=== PATIENT | female | born 1990 ===

== ENCOUNTER → 2017-02-17 16:36 | Observation (INO) ==
[2017-02-17 15:40] LABS: Bilirubin,Urine Negative (Negative); Blood,Urine Negative (Negative); Color,Urine Yellow (Yellow); Glucose,Urine (UA) Normal (Normal); Ketones,Urine 15 mg/dL (Negative); Leukocyte Esterase,Urine Small (Negative); Nitrite,Urine Negative (Negative); Protein,Urine Negative (Neg-Trace); Specific Gravity,Urine 1.022 (1.010-1.025); Urobilinogen,Urine Normal (Normal)
[2017-02-17 15:41] LABS: Bacteria,Urine Few per hpf (None-Few); Hyaline Casts,Urine Few per lpf (None-Few); RBC,Urine 0-3 per hpf (0-3); Squamous Epithelial Cell,Urine Many per lpf (None-Few); WBC,Urine 15-30 per hpf (0-3)
[2017-02-17 15:51] LABS: Clarity,Urine Clear (Clear)
[2017-02-17 16:11] LABS: Amphetamine Screen,Urine Negative ng/mL (Cutoff=1000); Barbiturate Screen,Urine Negative ng/mL (Cutoff=200); Benzodiazepines Screen,Urine Negative ng/mL (Cutoff=200); Cannabinoid Screen,Urine Negative ng/mL (Cutoff = 50); Cocaine Screen,Urine Negative ng/mL (Cutoff= 300); Opiate Screen,Urine Negative ng/mL (Cutoff=300); Phencyclidine Screen,Urine Negative ng/mL (Cutoff=25)
[~2017-02-17 16:36] MED LIST: GI Cocktail 40 ML EACH PO ONE
--- NOTE | 2017-02-21 17:52 | OB/GYN Progress Note ---
Date of Encounter: 02/17/17 Time of Encounter: 16:15 - Assessment and Plan (1) Abdominal pain Status: Acute No contractions on toco. No c/o contractions, LOF, VB. GI cocktail given. Pt discharged home with precautions per staff development coordinator rn. Qualifiers: Abdominal location: epigastric Qualified Code(s): R10.13 - Epigastric pain (2) 23 weeks gestation of Status: Acute Subjective - Subjective Interval history: 26 year-old presenting at 23 weeks gestation with c/o upper middle abdominal pain that is constant. She denies contractions, LOF, VB, intractable vomiting. Antepartum ROS: movement normal, no loss of fluid, no vaginal bleeding, no contractions Objective - Exam FHR: category 1 FHR comments: FHT reassuring for GA - Labs Labs: Abnormal lab results Ur Specimen Adequacy See below A 02/17/17 15:25 Urine Ketones 15 mg/dL (Negative) H 02/17/17 15:25 Ur Leukocyte Esterase Small (Negative) H 02/17/17 15:25 Urine Microscopic WBC 15-30 per hpf (0-3) H 02/17/17 15:25 Ur Squamous Epith Cells Many per lpf (None-Few) H 02/17/17 15:25 Ur Culture Indicated? YES (NO) A 02/17/17 15:25
== END | disposition home or self-care (01) ==
LOC: 1NENULAB
PROVIDERS: ADMIT Registered Nurse; ATTEND Registered Nurse